=== PATIENT | female | born 1950 | race Caucasian/White ===

== ENCOUNTER 2021-10-27 01:50 | Emergency (ER) | payer MEDICAID, MEDICARE, OTHER ==
[~2021-10-27] VITALS: Ht 167.6 cm; Wt 61.8 kg
[2021-10-27 01:51] VITALS: BP 117/67
[2021-10-27] MEDS ORDERED: PEPC40TA12 PO (02:03)
[2021-10-27] MEDS ORDERED: PRED20TA PO (06:57)
[2021-10-27] MEDS ORDERED: predniSONE 20 MG TAB PO ONE (07:00)
[2021-10-27] MEDS ORDERED: diphenhydrAMINE 25MG CAP PO ONE (07:00)
== END 2021-10-27 07:11 | disposition home or self-care (01) ==
LOC: M ED 01:50
DX: R21 Rash and other nonspecific skin eruption (principal); L29.9 Pruritus, unspecified; T78.40XA Allergy, unspecified, initial encounter; J45.909 Unspecified asthma, uncomplicated; K21.9 Gastro-esophageal reflux disease without esophagitis; M81.0 Age-related osteoporosis without current pathological fracture; Z87.09 Personal history of other diseases of the respiratory system; Z88.0 Allergy status to penicillin; Z79.899 Other long term (current) drug therapy
CPT/HCPCS: 99284; J7512